=== PATIENT | male | born 1980 | race Asian ===

== ENCOUNTER 2017-10-01 05:10 | Emergency (ER) | payer MEDICAID, OTHER ==
[~2017-10-01] VITALS: Ht 182.9 cm; Wt 81.8 kg
[2017-10-01] MEDS ORDERED: SODIUM CHLORIDE 0.9% 1,000 ML IV ONE (06:15)
[2017-10-01] MEDS ORDERED: PROCHLORPERAZINE EDISYLATE 5 MG/ML 2 ML VIAL IVP ONE (06:15)
[2017-10-01] MEDS ORDERED: DiphenhydrAMINE HCL 50 MG/ML VIAL IVP ONE (06:15)
[2017-10-01] MEDS ORDERED: KETOROLAC TROMETHAMINE 30 MG/ML VIAL IVP ONE (07:15)
[2017-10-01 07:46] VITALS: BP 142/70
== END 2017-10-01 07:49 | disposition home or self-care (01) ==
LOC: EMS 05:10
DX: G43.909 Migraine, unspecified, not intractable, without status migrainosus (principal); F12.90 Cannabis use, unspecified, uncomplicated; F17.210 Nicotine dependence, cigarettes, uncomplicated
CPT/HCPCS: 96374; 96375; 99284; J0780; J1200; J1885; J7030

== ENCOUNTER 2017-10-02 13:36 | Emergency (ER) | payer OTHER ==
[~2017-10-02] VITALS: Ht 172.7 cm; Wt 78.0 kg
[2017-10-02] MEDS ORDERED: SODIUM CHLORIDE 0.9% 1,000 ML IV ONE (14:35)
[2017-10-02] MEDS ORDERED: METOCLOPRAMIDE HCL 5 MG/ML 2 ML VIAL IVP ONE (14:45)
[2017-10-02] MEDS ORDERED: MORPHINE SULFATE 4 MG/ML SYRINGE IVP ONE (14:45)
[2017-10-02 15:10] LABS: BASOPHILS % (AUTO) 0.3 % (0.0-2.0); EOSINOPHILS % (AUTO) 0 % (1.0-6.0); HEMATOCRIT 38.6 % (41-53); HEMOGLOBIN 12.4 g/dL (13.5-17.5); LYMPHOCYTES # (AUTO) 0.6 K/uL (1.0-4.8); LYMPHOCYTES % (AUTO) 9.3 % (22.0-44.0); MEAN CORPUSCULAR HEMOGLOBIN 23.9 pg (26.0-34.0); MEAN CORPUSCULAR VOLUME 75 fL (80-100); MONOCYTES # (AUTO) 0.6 K/uL (0.1-1.0); MONOCYTES % (AUTO) 9.7 % (2.0-9.0); NEUTROPHILS # (AUTO) 4.9 K/uL (1.8-7.7); NEUTROPHILS % (AUTO) 80.7 % (40.0-70.0); PLATELET COUNT (AUTO) 201 K/uL (150-450); RED BLOOD CELL COUNT(AUTO) 5.17 MIL/uL (4.50-5.90); RED CELL DISTRIBUTION WIDTH 18.8 % (11.5-14.5)
[2017-10-02 15:28] LABS: APPEARANCE,URINE CLOUDY (CLEAR); BILIRUBIN,URINE NEGATIVE (NEGATIVE); GLUCOSE, URINE (UA) NEGATIVE (NEGATIVE); KETONES,URINE 15 mg/dL (NEGATIVE); LEUKOCYTE ESTERASE ,URINE NEGATIVE (NEGATIVE); NITRATE,URINE NEGATIVE (NEGATIVE); OCCULT BLOOD,URINE NEGATIVE (NEGATIVE); PH,URINE 7.5 (5.0-8.0); PROTEIN,URINE POS 1+ (NEGATIVE)
[2017-10-02 15:34] LABS: ANION GAP 11 mmol/L (8-16); CALCIUM, TOTAL 8.9 mg/dL (8.8-10.5); CARBON DIOXIDE 23 mmol/L (22-29); CHLORIDE 100 mmol/L (98-107); CREATININE 0.95 mg/dL (0.60-1.30); GLOMERULAR FILTR. RATE CALC > 60 mL/min (>60); GLUCOSE,RANDOM 107 mg/dL (70-110); POTASSIUM 3.3 mmol/L (3.5-5.1); SODIUM SERUM 134 mmol/L (136-145); UREA NITROGEN, BLOOD 10 mg/dL (7-18)
[2017-10-02 15:36] LABS: RBC,URINE 0-2 /HPF (0-2); WBC,URINE 0-2 /HPF (0-5)
[2017-10-02 15:37] LABS: BACTERIA,URINE Few /HPF (None Seen); SQUAMOUS EPITHELIAL CELL,UR Rare /LPF (None Seen)
[2017-10-02 15:39] LABS: ALANINE AMINOTRANSFERASE 23 U/L (12-78); ALBUMIN 3.8 g/dL (3.4-5.0); ALKALINE PHOSPHATASE 49 U/L (46-116); ASPARTATE AMINOTRANSFERASE 19 U/L (15-37); BILIRUBIN,TOTAL 0.8 mg/dL (0.1-1.0); TOTAL PROTEIN, SERUM 8.3 g/dL (6.4-8.2)
[2017-10-02] MEDS ORDERED: POTASSIUM CHLORIDE 20 MEQ ER TABLET PO ONE (15:45)
[2017-10-02] MEDS ORDERED: KETOROLAC TROMETHAMINE 30 MG/ML VIAL IVP ONE (15:45)
[2017-10-02 16:36] LABS: LACTIC ACID 1.4 mmol/L (0.4-2.0)
[2017-10-02 16:56] LABS: AMPHET/METH SCREEN,URINE NEGATIVE (NEGATIVE); BARBITURATE SCREEN, URINE NEGATIVE (NEGATIVE); BENZODIAZEPINES SCREEN,URINE NEGATIVE (NEGATIVE); CANNABINOID SCREEN,URINE POSITIVE (NEGATIVE); COCAINE SCREEN,URINE NEGATIVE (NEGATIVE); METHADONE SCREEN, URINE NEGATIVE (NEGATIVE); OPIATE SCREEN,URINE NEGATIVE (NEGATIVE); PHENCYCLIDINE SCREEN,URINE NEGATIVE (NEGATIVE)
[2017-10-02 17:06] VITALS: BP 144/90
== END 2017-10-02 17:47 | disposition home or self-care (01) ==
LOC: EMS 13:37
DX: E87.6 Hypokalemia (principal); R51 Headache; I10 Essential (primary) hypertension; F17.210 Nicotine dependence, cigarettes, uncomplicated; F12.90 Cannabis use, unspecified, uncomplicated; Z71.6 Tobacco abuse counseling; Z98.890 Other specified postprocedural states
CPT/HCPCS: 36415; 70450; 80053; 80307; 81001; 83605; 85025; 96361; 96374; 96375; 99285; 99406; J1885; J2270; J2765; J7030

== ENCOUNTER 2019-03-27 10:26 | Emergency (ER) | payer OTHER ==
[~2019-03-27] VITALS: Ht 188 cm; Wt 100.0 kg
[2019-03-27] MEDS ORDERED: IBUPROFEN 800 MG TABLET PO ONE (11:30)
[2019-03-27 12:00] VITALS: BP 115/77
== END 2019-03-27 12:22 | disposition home or self-care (01) ==
LOC: EMS 10:27
DX: M79.645 Pain in left finger(s) (principal); M79.644 Pain in right finger(s); F17.210 Nicotine dependence, cigarettes, uncomplicated; F12.90 Cannabis use, unspecified, uncomplicated; Z98.890 Other specified postprocedural states

== ENCOUNTER 2019-06-19 15:28 | Emergency (ER) | payer OTHER ==
[~2019-06-19] VITALS: Ht 190.5 cm; Wt 104.5 kg
[2019-06-19 15:36] VITALS: BP 125/80
== END 2019-06-19 16:34 | disposition home or self-care (01) ==
LOC: EMS 15:29
DX: F41.9 Anxiety disorder, unspecified (principal); F17.210 Nicotine dependence, cigarettes, uncomplicated; F12.90 Cannabis use, unspecified, uncomplicated
CPT/HCPCS: 99406

== ENCOUNTER 2020-03-07 14:35 | Emergency (ER) | payer OTHER ==
[~2020-03-07] VITALS: Ht 193 cm; Wt 100.0 kg
[2020-03-07 14:36] VITALS: BP 122/76
[2020-03-07] MEDS ORDERED: IBUPROFEN 800 MG TABLET PO ONE (15:15)
== END 2020-03-07 16:56 | disposition home or self-care (01) ==
LOC: EMS 14:40
DX: S33.5XXA Sprain of ligaments of lumbar spine, initial encounter (principal); V89.2XXA Person injured in unspecified motor-vehicle accident, traffic, initial encounter; Y93.89 Activity, other specified; Y92.488 Other paved roadways as the place of occurrence of the external cause; Y99.8 Other external cause status
CPT/HCPCS: 72100

== ENCOUNTER 2022-03-23 13:06 | Emergency (ER) | payer OTHER ==
[~2022-03-23] VITALS: Ht 193 cm; Wt 113.6 kg
[2022-03-23 13:34] VITALS: BP 101/66
[2022-03-23 13:46] LABS: COVID AG,FIA SOURCE NASAL SWAB
[2022-03-23 14:07] LABS: RAPID GROUP A STREP NEGATIVE (NEGATIVE)
[2022-03-23 14:08] LABS: INFLUENZA TYPE A NEGATIVE FOR TYPE A (NEGATIVE); INFLUENZA TYPE B NEGATIVE FOR TYPE B (NEGATIVE)
== END 2022-03-23 18:07 | disposition left against medical advice (07) ==
LOC: EMS 13:49
DX: J02.9 Acute pharyngitis, unspecified (principal); Z20.822 Contact with and (suspected) exposure to COVID-19; Z53.21 Procedure and treatment not carried out due to patient leaving prior to being seen by health care provider
CPT/HCPCS: 87426; 87430; 87804; C9803

== ENCOUNTER 2024-03-06 15:10 | Emergency (ER) | payer SELFPAY ==
[~2024-03-06] VITALS: Ht 190.5 cm; Wt 110.0 kg
[2024-03-06 15:15] VITALS: BP 139/80; PULSE 85; RESP 24; TEMP 100.2; O2SAT 99
[2024-03-06 16:06] LABS: COVID AG,FIA SOURCE NASAL SWAB
[2024-03-06 16:30] LABS: INFLUENZA TYPE A NEGATIVE FOR TYPE A (NEGATIVE); INFLUENZA TYPE B NEGATIVE FOR TYPE B (NEGATIVE); SARS-COV2 (COVID) ANTIGEN,FIA Negative (Negative)
== END 2024-03-06 19:39 | disposition left against medical advice (07) ==
LOC: EMS 15:10
DX: R06.02 Shortness of breath (principal); Z20.822 Contact with and (suspected) exposure to COVID-19; Z53.21 Procedure and treatment not carried out due to patient leaving prior to being seen by health care provider
CPT/HCPCS: 87804

== ENCOUNTER 2024-03-24 22:20 | Emergency (ER) | payer SELFPAY ==
[~2024-03-24] VITALS: Ht 190.5 cm; Wt 111.4 kg
[2024-03-24 22:26] VITALS: BP 118/78; PULSE 78; RESP 18; TEMP 97.7; O2SAT 98
[2024-03-24] MEDS: KETOROLAC TROMETHAMINE 30 MG/ML VIAL IM ONE (22:44)
[2024-03-24] MEDS: ACETAMINOPHEN 500 MG TABLET PO ONE (22:44)
[2024-03-24] MEDS ORDERED: IBUP-1492 PO (23:11)
[2024-03-24] MEDS ORDERED: ACET-3385 PO (23:11)
== END 2024-03-25 00:14 | disposition home or self-care (01) ==
LOC: EMS 22:20
DX: M70.22 Olecranon bursitis, left elbow (principal); F17.210 Nicotine dependence, cigarettes, uncomplicated; F12.90 Cannabis use, unspecified, uncomplicated; Z98.890 Other specified postprocedural states; Y93.89 Activity, other specified
CPT/HCPCS: 99283; 73080; 96372; 29105; J1885

== ENCOUNTER 2024-05-21 11:04 | Emergency (ER) | payer MEDICAID ==
[~2024-05-21] VITALS: Ht 188 cm; Wt 117.0 kg
[~2024-05-21 11:04] MED LIST: ACET-3385 PO; IBUP-1492 PO
[2024-05-21 11:14] VITALS: BP 119/67; PULSE 74; RESP 18; TEMP 98.7; O2SAT 99
[2024-05-21] MEDS: PredniSONE 20 MG TABLET PO ONE (12:08)
[2024-05-21] MEDS: IBUPROFEN 400 MG TABLET PO ONE (12:08)
[2024-05-21] MEDS ORDERED: IBUP-1506 PO (12:37)
[2024-05-21] MEDS ORDERED: PRED-554 PO (12:37)
== END 2024-05-21 12:54 | disposition home or self-care (01) ==
LOC: EMS 11:09
DX: L25.9 Unspecified contact dermatitis, unspecified cause (principal); M70.22 Olecranon bursitis, left elbow; F12.90 Cannabis use, unspecified, uncomplicated; F17.210 Nicotine dependence, cigarettes, uncomplicated; Y93.89 Activity, other specified
CPT/HCPCS: 99283; J7512